=== PATIENT | female | born 1960 | race Caucasian/White ===

== ENCOUNTER 2019-12-08 13:47 | Emergency (ER) | payer OTHER ==
[~2019-12-08] VITALS: Ht 160 cm; Wt 65.8 kg
[~2019-12-08 13:47] MED LIST: CYMBALTA; GLYBURIDE; JANUMET; LIPITOR; LISINOPRIL; REGLAN 10 MG TA10 M1 PO
[2019-12-08] MEDS ORDERED: METFORMIN HCL500 M3 PO (14:05)
[2019-12-08 14:25] LABS: ABSOLUTE BASOPHILS 0.1 thou/uL (0.0-0.2); ABSOLUTE EOSINOPHILS 0.1 thou/uL (0.0-0.7); ABSOLUTE LYMPHOCYTES 1.3 thou/uL (0.8-5.3); ABSOLUTE MONOCYTES 0.2 thou/uL (0.0-1.2); ABSOLUTE NEUTROPHILS 6.7 thou/uL (1.6-8.1); BASOPHILS 0.9 %; EOSINOPHILS 0.6 %; HEMATOCRIT 44.4 % (37.0-47.0); HEMOGLOBIN 15.4 gm/dL (12.0-15.0); LYMPHOCYTES 15.4 %; MCH 30.7 pg (26.0-34.0); MCHC 34.7 g/dL (28.0-37.0); MCV 88.6 fL (80.0-100.0); MONOCYTES 2.9 %; MPV 7.3 fl. (7.2-11.1); NUCLEATED RBCS 0 /100WBC; PLATELET COUNT* 265 thou/uL (150-400); POLYS 80.2 %; RBC 5.02 mil/uL (4.20-5.00); WBC 8.3 thou/uL (4.0-11.0)
[2019-12-08 14:39] LABS: CALCIUM 9.4 mg/dL (8.5-10.1); CREATININE 0.8 mg/dL (0.6-1.3); POTASSIUM 4.2 mmol/L (3.5-5.1)
[2019-12-08 14:43] LABS: ALBUMIN 4.4 g/dL (3.4-5.0); TOTAL BILIRUBIN 0.5 mg/dL (<0.1-1.0)
[2019-12-08] MEDS ORDERED: ZOFRAN ODT4 MG DISSOLVE (17:03)
[2019-12-08] MEDS ORDERED: NORCO 5-325 TA1 EAC2 PO (17:03)
[2019-12-08] MEDS ORDERED: ZESTRIL5 MG PO (17:03)
[2019-12-08 17:10] VITALS: BP 139/67
--- NOTE | 2019-12-09 10:00 | EKG ---
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
== END 2019-12-08 17:41 | disposition home or self-care (01) ==
LOC: M.ERS 13:47
PROVIDERS: Emergency Medicine Emergency Medical Services
DX: R11.2 Nausea with vomiting, unspecified (principal); R10.13 Epigastric pain; E11.9 Type 2 diabetes mellitus without complications

== ENCOUNTER 2019-12-10 13:25 | Emergency (ER) | payer OTHER ==
[~2019-12-10] VITALS: Ht 160 cm; Wt 65.8 kg
[~2019-12-10 13:25] MED LIST changes: +METFORMIN HCL500 M3 PO; +NORCO 5-325 TA1 EAC2 PO; +ZESTRIL5 MG PO; +ZOFRAN ODT4 MG DISSOLVE
[2019-12-10 14:05] LABS: ABSOLUTE BASOPHILS 0.1 thou/uL (0.0-0.2); ABSOLUTE LYMPHOCYTES 1.2 thou/uL (0.8-5.3); ABSOLUTE MONOCYTES 0.3 thou/uL (0.0-1.2); ABSOLUTE NEUTROPHILS 7.8 thou/uL (1.6-8.1); EOSINOPHILS 0.2 %; HEMATOCRIT 43.4 % (37.0-47.0); LYMPHOCYTES 12.6 %; MCH 30.6 pg (26.0-34.0); MCHC 34.6 g/dL (28.0-37.0); MCV 88.5 fL (80.0-100.0); MONOCYTES 2.8 %; MPV 7.3 fl. (7.2-11.1); NUCLEATED RBCS 0 /100WBC; PLATELET COUNT* 285 thou/uL (150-400); POLYS 83.4 %; WBC 9.4 thou/uL (4.0-11.0)
[2019-12-10 14:15] LABS: CALCIUM 9.5 mg/dL (8.5-10.1); CREATININE 0.9 mg/dL (0.6-1.3); POTASSIUM 3.8 mmol/L (3.5-5.1)
[2019-12-10 14:19] LABS: ALBUMIN 4.3 g/dL (3.4-5.0); TOTAL BILIRUBIN 0.8 mg/dL (<0.1-1.0); TOTAL PROTEIN 8.1 g/dL (6.4-8.2)
[2019-12-10] MEDS ORDERED: PHENERGAN 25 MG25 M1 PO (14:21)
[2019-12-10] MEDS ORDERED: PROMS25 WY RECTAL (14:21)
[2019-12-10] MEDS ORDERED: HIGH POTENCY42.5 GM TOP (14:21)
[2019-12-10 15:02] VITALS: BP 181/70
--- NOTE | 2019-12-11 09:50 | EKG ---
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[facility] : 1960 Requested By: Hany Ennis Order Number: [id number] MD: Db Espinoza Measurements Intervals [place] Rate: 86 P: 48 SC: 154 QRS: 45 QRSD: 88 T: 31 QT: 360 QTc: 431 Interpretive Statements Sinus rhythm Probable left atrial enlargement Compared to ECG 12/08/2019 14:16:33 No significant changes Electronically Signed On 12-11-2019 9:50:32 CDT by Db Espinoza [email or web address] <ELECTRONICALLY SIGNED> By: Db Espinoza MD, [facility] 12/11/19 0950 1431 1431 Db Espinoza MD, [facility] /EPI
== END 2019-12-10 15:02 | disposition home or self-care (01) ==
LOC: M.ERS 13:25
PROVIDERS: Family Medicine
DX: E11.65 Type 2 diabetes mellitus with hyperglycemia (principal); I10 Essential (primary) hypertension; R11.15 Cyclical vomiting syndrome unrelated to migraine; Z91.14 Patient's other noncompliance with medication regimen; R10.13 Epigastric pain